=== PATIENT | male | born 1990 | race African-American/Black ===

== ENCOUNTER 2017-09-03 19:40 | Emergency (ER) | payer SELFPAY ==
[~2017-09-03] VITALS: Ht 177.8 cm; Wt 83.5 kg
[2017-09-03] MEDS ORDERED: IV NORMAL SALINE 1000 ML BAG IV ONE (21:00)
--- NOTE | 2017-09-03 22:28 | NUR ---
Patient discharged to home in stable conditon. Written and verbal after care instructions given. Patient verbalizes understanding of instructions.
== END 2017-09-03 22:29 | disposition home or self-care (01) ==
LOC: ER 19:40
DX: J02.0 Streptococcal pharyngitis (principal)
CPT/HCPCS: A4663; J7030